=== PATIENT | male | born 1945 | race Caucasian/White ===

== ENCOUNTER 2019-09-24 11:20 | Inpatient (IN) ==
--- NOTE | 2019-09-24 12:40 | Diag Imaging Result Doc PS360 ---
EXAM: CT HEAD W/O CONTRAST 09/24/2019 HISTORY: ams TECHNIQUE: This exam was performed using automated exposure control, adjustment of mA or kV according to patient size, and/or use of iterative reconstruction technique. COMMENT: There is mild generalized cerebral atrophy. There is extensive patchy abnormal lucency in the periventricular white matter of both hemispheres. Compared to 08/29/2019 there has been no significant change in the appearance the brain. The calvarium is intact. The visualized paranasal sinuses are clear. IMPRESSION: Cerebral atrophy and chronic ischemic white matter changes. No evidence of acute disease. If clinically indicated advise further evaluation with MRI. Electronically signed by Delonte Lowery 09/24/2019 12:38 PM
[2019-09-24 12:44] LABS: URINE SOURCE CATH
--- NOTE | 2019-09-24 12:45 | Diag Imaging Result Doc PS360 ---
EXAM: CHEST-1 VIEW 09/24/2019 HISTORY: AMS TECHNIQUE: AP portable at 1204 COMMENT: There is no evidence of acute cardiac or pulmonary disease. Compared to 09/19/2019 there has been no significant change. IMPRESSION: No acute disease. Electronically signed by Delonte Lowery 09/24/2019 12:42 PM
[2019-09-24 12:46] LABS: BASO# 0.02 X1000 (0.0-0.2); BASO% 0.2 % (0.0-0.8); EOS# 0.33 X1000 (0.0-0.7); EOS% 3.2 % (0.0-10.0); HEMATOCRIT 43.2 % (42.0-52.0); HEMOGLOBIN 14.4 g/dL (14.0-18.0); IMM GRAN# 0.04 X1000 (0.0-0.04); IMM GRAN% 0.4 % (0.0-0.5); LYMPH# 1.38 X1000 (1.2-3.4); LYMPH% 13.3 % (20.5-51.1); MCH 32.3 PG (27-31); MCHC 33.3 g/dL (33-37); MCV 96.9 FL (81-99); MONO# 1.49 X1000 (0.11-0.59); MONO% 14.3 % (1.7-9.3); MPV 11.8 FL (7.4-10.4); NEUT# 7.15 X1000 (1.4-6.5); NEUT% 68.6 % (42.2-75.2); PLT 161 X1000 (130-400); RBC 4.46 XMIL (4.7-6.1); RDW 12.9 % (11.5-14.5); WBC 10.41 X1000 (4.8-10.8)
[2019-09-24 12:47] LABS: UR EPITHELIAL CELLS <10 /HPF (<10); URINE BACTERIA NEGATIVE /HPF; URINE RBC TNTC /HPF (<10)
[2019-09-24 12:49] LABS: BILIRUBIN URINE NEGATIVE (NEGATIVE); BLOOD URINE LARGE (NEGATIVE); COLOR ORANGE; GLUCOSE URINE NEGATIVE (NEGATIVE); KETONE URINE 10 mg/dL (NEGATIVE); LEUKOCYTES URINE TRACE (NEGATIVE); NITRITE URINE NEGATIVE (NEGATIVE); PROTEIN URINE 50 mg/dL (NEGATIVE); TURBIDITY URINE HAZY (CLEAR); UROBILINOGEN URINE 2 mg/dL (NORMAL)
--- NOTE | 2019-09-24 13:05 | EKG Report ---
Test Performed on : 09/24/2019 12:55:12 PM Test Reason : bradycardia Blood Pressure : / mmHG Vent. Rate : 075 BPM Atrial Rate : 075 BPM P-R Int : 132 ms QRS Dur : 064 ms QT Int : 354 ms P-R-T Axes : 064 035 114 degrees QTc Int : 395 ms Sinus rhythm. with frequent ventricular-paced complexes and premature supraventricular complexes. Low voltage QRS Nonspecific ST and T wave abnormality Abnormal ECG No previous ECGs available Unconfirmed Result
[2019-09-24 13:07] LABS: ALBUMIN 3.5 g/dL (3.5-5.0); CALCIUM 9.2 mg/dL (8.8-10.2); CREATININE 1.3 mg/dL (0.7-1.2); POTASSIUM 4.6 mmol/L (3.5-5.1); TOTAL BILIRUBIN 0.53 mg/dL (0.20-1.00)
[2019-09-24 13:27] LABS: VALPROIC ACID 80.1 ug/mL (50-100)
[2019-09-24 15:42] LABS: ALLEN TEST NO; BE 3.3 mmoll (-3.0-3.0); BLOOD TYPE ARTERIAL; HCO3-(ACT) 27.3 mmoll (20.0-26.0); METHB 1.1 % (0.0-1.5); MODALITY ROOM AIR; O2(CT) 18.7 mL/dL (15.0-23.0); PCO2(98.6) 37 mmHg (35-45); PO2(98.6) 61 mmHg (60-100); SAMPLE BLOOD; SAO2 94.9 % (95.0-100.0); THB 14.5 g/dL (11.5-17.4); pH(98.6) 7.47 (7.35-7.45)
--- NOTE | 2019-09-24 16:22 | PROVIDER DOCUMENTATION ---
This chart was entered by Shannon Stauffer Scribe, acting as scribe for Samy Hidalgo MD. HPI-General Adult - General Stated Complaint: AMS BLOOD IN URINE Time Seen by Provider: 09/24/19 11:46 Source: EMS, other (caregiver [facility]) Unable to obtain history due to:: altered Allergies/Adverse Reactions: Patient Allergies Allergy/AdvReac Type Severity Reaction Status Date / Time acetaminophen Allergy RASH Verified 09/24/19 11:56 [From Darvocet-N] Penicillins Allergy RASH Verified 09/24/19 11:56 propoxyphene Allergy RASH Verified 09/24/19 11:56 [From Darvocet-N] Home Medications: Home Medication List Medication Instructions Recorded Confirmed Last Taken Type Amlodipine [Norvasc] 10 mg PO DAILY 04/27/18 09/24/19 04/27/18 History Aspirin 81 mg PO DAILY 04/27/18 09/24/19 04/27/18 History Clopidogrel Bisulfate [Clopidogrel] 75 mg PO DAILY 04/27/18 09/24/19 04/27/18 History Trazodone [Desyrel] 50 mg PO DAILY 04/27/18 09/24/19 04/26/18 20:00 History Albuterol Sulfate [Albuterol 2 puff PO Q6H PRN PRN 08/28/19 09/24/19 Unknown History Sulfate Hfa] ATORVAstatin [Lipitor] 1 tab PO DAILY 08/29/19 09/24/19 Unknown History Pantoprazole [Protonix] 1 tab PO DAILY 08/29/19 09/24/19 Unknown History Tamsulosin [Flomax] 0.4 mg PO DAILY #5 cap 09/19/19 09/24/19 Unknown Rx Cyanocobalamin (Vitamin B-12) 1,000 mcg PO DAILY 09/24/19 09/24/19 Unknown History [Vitamin B-12] Dextrose 5 %-0.45 % Sod Chlord 1,000 ml IV BID 09/24/19 09/24/19 Unknown History [Dextrose 5%-0.45% NaCl IV Soln] Divalproex Sodium 500 mg PO BID 09/24/19 09/24/19 Unknown History Docusate Sodium [Dulcolax Stool 100 mg PO DAILY 09/24/19 09/24/19 Unknown History Softener] Fluoxetine HCl 10 mg PO DAILY 09/24/19 09/24/19 Unknown History Folic Acid 1 mg PO DAILY 09/24/19 09/24/19 Unknown History Gentamicin 80 mg IM Q8HR 09/24/19 09/24/19 Unknown History Ibuprofen 400 mg PO Q6HR 09/24/19 09/24/19 Unknown History Mag Hydrox/Al Hydrox/Simeth 30 ml PO 4XDAY PRN PRN 09/24/19 09/24/19 Unknown History [Maalox Plus] Magnesium Hydroxide [Milk of 30 ml PO DAILY 09/24/19 09/24/19 Unknown History Magnesia] Olanzapine Rapdis [Zyprexa Zydis] 7.5 mg PO QAM 09/24/19 09/24/19 Unknown History Opium/Belladonna Alkaloids 1 ea RC Q6HR 09/24/19 09/24/19 Unknown History [Belladonna-Opium 16.2-30 Supp] Sennosides/Docusate Sodium 1 ea PO DAILY 09/24/19 09/24/19 Unknown History [Senokot-S Tablet] - History of Present Illness -Gen Adult Nature of Presenting Problems: 74 yowm presents to the ed via ems for complaint of hematuria seen in cath and p eriods of apnea. pt has been seen for same complaint on 09/19/19 09/21/19 and today. pt has hx of dementia and bladder cancer. caregiver from [facility] sts pt has declined since last visit. pt on exam is altered and does not follow commands. Location of Pain/Injury: reports: none Pain Radiation: reports: no radiation Quality of Pain: reports: none Severity: reports: mild (hematuria) Onset/Duration: reports: other (09/19/19) Timing: reports: still present Context/Activities at Onset: reports: light activity Modifying Factors: improves with: nothing Associated Symptoms: reports: genitourinary problems (hematuria). denies: diarrhea, fever/chills, shortness of breath, vomiting Similar Symptoms Previously?: Yes Recently seen or treated by another doctor?: Yes (been to ed multiple times for hematuria) Review of Systems - Adult - REVIEW OF SYSTEMS - ADULT ROS:: pt is altered so home health care respiratory therapist from [facility] speaks for him Constitutional: denies: chills, fever Eyes: reports: no symptoms reported Ears, Nose, Mouth & Throat: reports: no symptoms reported Cardiovascular: reports: no symptoms reported Respiratory: reports: see HPI, other (brief periods of apnea). denies: wheezing Gastrointestinal: denies: diarrhea, vomiting Genitourinary: reports: see HPI, hematuria Musculoskeletal: reports: no symptoms reported Integumentary: reports: no symptoms reported Neurological: reports: no symptoms reported Psychiatric: reports: no symptoms reported Endocrine: reports: no symptoms reported Hematologic/Lymphatic: reports: no symptoms reported Allergic/Immunologic: reports: no symptoms reported All Other Systems: Reviewed and Negative Past History - Adult - PAST MEDICAL HISTORY-ADULT Review of Records: reports: Old Records Reviewed, Nursing Assessment Review, Medications Reviewed, Social history reviewed & non-contributory. Major Childhood Illnesses: reports: denies history Cardiovascular: reports: HTN, [place] Respiratory: reports: denies history Gastrointestinal: reports: GERD Genitourinary: reports: cancer (bladder), prostate cancer Musculoskeletal: reports: denies history Neurological: reports: denies history Psychiatric: reports: denies history Endocrine/Immune: reports: denies history Other Conditions: reports: denies history - PRIOR SURGERIES/PROCEDURES Surgical/Procedure History: reports: appendectomy, other (bladder sx; prostate cancer) - IMMUNIZATION STATUS Childhood Immunizations: See Nurse Assessment Flu Vaccine: See Nurse Assessment - FAMILY HISTORY Family History: reviewed, not pertinent - SOCIAL HISTORY Smoking: cigarettes, less than 1 pack/day Provider spent 3-5 mins advising pt. on dangers of tobacco.: pt is altered at time of exam Substance Use: none/never Living Situation: care facility ([facility]) Physical Exam-General - PHYSICAL EXAM-ADULT Exam Limited by: pt has mumbling speech and does not follow commands/hx dementia Initial Vital Signs Reviewed: Yes - CONSTITUTIONAL General Appearance: no apparent distress, slow to respond - EYES Eyes: PERRL/EOMI - HEAD, EARS, NOSE, MOUTH & THROAT HENMT: negative: moist mucous membranes (dry mild) - NECK Neck: full range of motion, normal inspection - RESPIRATORY Respiratory: chest non-tender, lungs clear, normal breath sounds, other (no apnea witnessed since pt has been in ed) - CARDIOVASCULAR Cardiovascular: normal peripheral pulses, regular rate, rhythm - GASTROINTESTINAL (ABDOMEN) Abdominal Exam: non tender, soft - GENITOURINARY Male Genitalia: deferred, other (hematuria seen in cath) Rectal Exam: deferred Hemoccult Exam: deferred - MUSCULOSKELETAL Back Exam: other (pt lying supine no exam done) Extremity: normal capillary refill - SKIN Integumentary: warm/dry - PSYCHIATRIC Psych/Mental Status: disoriented x 3, other (mumbling speech unable to follow commnads) Progress - PLAN OF CARE/RESULTS Progress/Plan/Lab Results: hematuria is most likely due to his catheter auto-manipulation Result Diagrams: 09/24/19 12:28 09/24/19 12:28 - EKG 1 Time of EKG reading by physician:: 12:55 EKG Read and Signed by:: Samy Hidalgo EKG Interpretation (*Must complete 3 of following elements*): Abnormal Rate: 75 Rhythm: sinus rhythm w/freq ventricular paced complexes & premature supraventricula [place]: normal QRS: other (low volatge qrs) [place] Interval: normal Comments: nonspecific ST and T wave abnormality - XRAY 1 XRAY: Bilateral XRAY Study: Chest Impression: See EMR Report (EXAM: CHEST-1 VIEW 09/24/2019 HISTORY: AMS TECHNIQUE: AP portable at 1204 COMMENT: There is no evidence of acute cardiac or pulmonary disease. Compared to 09/19/2019 there has been no significant change. IMPRESSION: No acute disease. Electronically signed by Delonte Lowery 09/24/2019 12:42 PM 09/24/19 1242 Interpreting Physician: Delonte Lowery MD Dictated Date/Time: 09/24/19 1242 cc: Samy Hidalgo MD;) - CT/MRI 1 CT Study: Head Impression: See EMR Report (EXAM: CT HEAD W/O CONTRAST 09/24/2019 HISTORY: ams TECHNIQUE: This exam was performed using automated exposure control, adjustment of mA or kV according to patient size, and/or use of iterative reconstruction technique. COMMENT: There is mild generalized cerebral atrophy. There is extensive patchy abnormal lucency in the periventricular white matter of both hemispheres. Compared to 08/29/2019 there has been no significant change in the appearance the brain. The calvarium is intact. The visualized paranasal sinuses are clear. IMPRESSION: Cerebral atrophy and chronic ischemic white matter changes. No evidence of acute disease. If clinically indicated advise further evaluation with MRI. Electronically signed by Delonte Lowery 09/24/2019 12:38 PM 09/24/19 1238 Interpreting Physician: Delonte Lowery MD Dictated Date/Time: 09/24/19 1237 cc: Samy Hidalgo MD;) - CONSULTS/PCP/HOSPITALIST Notification #1 *Consult/PCP/Hospitalist*: dr montalvo Time Discussed: 14:55 Reason/Comments: phone consult Consult Disposition: other (remove quigley, check ABGs) #2 Consult: dr conroy Time Discussed: 15:47 (pt can not return to [facility]) Reason/Comments: phone conersation #3 Consult: dr montalvo Time Discussed: 16:12 Reason/Comments: phone consult Consult Disposition: Will see in ED, Admit Departure - Departure Date of Disposition Decision: 09/24/19 Time of Disposition Decision: 12:00 DIAGNOSIS: UTI (urinary tract infection) Altered mental status Qualifiers: Altered mental status type: stupor Qualified Code(s): R40.1 - Stupor Hematuria Qualifiers: Hematuria type: gross Qualified Code(s): R31.0 - Gross hematuria Disposition: ADMITTED INPATIENT 09 Certified Medical Emergency: Emergent Condition: Fair Referrals and Follow-Ups: Heath Montalvo MD [Primary Care Provider] - Discharge Education: Steps to Quit Smoking, [id number] - Critical Care Note This patient required my direct & personal management of CC.: No Attestation - Physician/ DESMOND Attestation Patient care was provided by Advanced Practice Provider:: No The physician spent face to face time with patient:: Yes Advanced Practice Provider documentation review:: Supervising physician onsite and consulted in the evaluation and care of this patient. The physician did have a face to face encounter with the patient. This chart was documented by the indicated scribe, (Shannon Stauffer Scribe) and accurately reflects the services I performed and decisions made by me, Samy Hidalgo MD, as attested by the provider's signature.
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
[2019-09-24] MEDS: FOLIC ACID PO SCH (22:04)
[2019-09-24] MEDS: HEPARIN SUBQ SCH (22:04)
[2019-09-24] MEDS: DESYREL PO SCH (22:04)
[2019-09-24] MEDS: KEFLEX PO SCH (22:04)
[2019-09-24] MEDS: FLOMAX PO SCH (22:04)
[2019-09-24] MEDS: DEPAKOTE PO SCH (22:05)
[2019-09-25] MEDS: PLAVIX PO SCH ×2 (10:24→10:45)
[2019-09-25] MEDS: KEFLEX PO SCH ×3 (10:24→20:43)
[2019-09-25] MEDS: DEPAKOTE PO SCH ×3 (10:24→20:43)
[2019-09-25] MEDS: LIPITOR PO SCH ×2 (10:24→10:45)
[2019-09-25] MEDS: ASPIRIN PO SCH ×2 (10:24→10:44)
[2019-09-25] MEDS: NORVASC PO SCH ×2 (10:24→10:45)
[2019-09-25] MEDS: PERICOLACE PO SCH ×2 (10:24→10:45)
[2019-09-25] MEDS: HEPARIN SUBQ SCH ×3 (10:25→20:42)
[2019-09-25] MEDS: MILK OF MAGNESIA PO SCH ×2 (10:25→10:45)
[2019-09-25] MEDS: PRILOSEC PO SCH ×2 (10:25→10:43)
[2019-09-25] MEDS: PROZAC PO SCH ×2 (10:25→10:43)
--- NOTE | 2019-09-25 11:53 | PROGRESS NOTE ---
DATE: 09/25/2019 SUBJECTIVE: The patient's chart was reviewed. In summary, the patient was admitted yesterday, having been sent by [facility] to the emergency department secondary to urinary tract infection and alteration of mental status. Apparently, the patient was seen in the emergency department at [facility] on 09/21/2019. Urine culture revealed Proteus. The patient has been treated with antibiotic intervention. Since admission, the patient's home medications were continued. Antibiotics were transitioned to Keflex. Bear catheter was removed. This morning, prior to my arrival, I could hear the patient yelling at the nurse in his room. He was refusing to take his medications. Upon my entering the room, the patient was generally pleasant. With encouragement, the patient did ultimately take his medications. The patient was directed and responded appropriately. He denies any significant complaints currently, including fevers, chills, nausea, vomiting, shortness of breath, or chest discomfort. OBJECTIVE: Vital Signs: T-max 98.2 degrees, heart rate 70 to 85, respirations 16 to 19, blood pressure 117 to 151/58 to 84. General: Confused. No acute distress. Cardiovascular: Regular rate and rhythm. No significant murmurs, rubs, or gallops. Pulmonary: Clear to auscultation anteriorly. Abdomen: Soft, nontender, nondistended. Positive bowel sounds. Extremities: Moves all extremities well. No significant clubbing, cyanosis, or edema. Dermatologic: No evidence of rash. LABORATORY DATA: None. ASSESSMENT AND PLAN: 1. Alteration of mental status. This is above his baseline dementia. This likely is secondary to his underlying infection. We will treat this as described below. 2. Cystitis. Urine culture grew Proteus. The patient has been transitioned to Keflex therapy. As above, after coaching, he took his medications appropriately this morning. We will continue his current regimen. Depending on his progress, we will remain aware that Proteus could manifest with associated stone disease. Should his condition continue, CT scan of the abdomen and pelvis may be appropriate. 3. Advanced dementia with inappropriate and dangerous acts. The patient is currently being treated with Zyprexa, Depakote, and Prozac therapy. We will continue each of these as this has been adjusted per [facility]. I suspect with treatment of his underlying infection, this will stabilize. 4. Hypertension. We will continue the patient on amlodipine therapy. 5. Urinary retention. The patient is currently being treated with Flomax therapy. We will continue this. His Bear catheter has been removed. He will be followed with every 12-hour bladder scans. 6. Hyperlipidemia. We will continue atorvastatin therapy. 7. Disposition. At this point, the patient continues to require fpc care in a hospital setting. We will plan discharge home once appropriate. cc: MD Heath Rodriguze MD
[2019-09-25] MEDS: FLOMAX PO SCH (17:08)
[2019-09-25] MEDS: DESYREL PO SCH (20:43)
[2019-09-25] MEDS: FOLIC ACID PO SCH (20:43)
[2019-09-25] MEDS: ZYPREXA ZYDIS PO SCH (20:44)
[2019-09-26] MEDS: PRILOSEC PO SCH (06:56)
[2019-09-26] MEDS: NORVASC PO SCH (09:24)
[2019-09-26] MEDS: KEFLEX PO SCH ×2 (09:24→21:47)
[2019-09-26] MEDS: MILK OF MAGNESIA PO SCH (09:24)
[2019-09-26] MEDS: ASPIRIN PO SCH (09:24)
[2019-09-26] MEDS: PROZAC PO SCH (09:24)
[2019-09-26] MEDS: HEPARIN SUBQ SCH ×2 (09:24→22:01)
[2019-09-26] MEDS: PLAVIX PO SCH (09:24)
[2019-09-26] MEDS: PERICOLACE PO SCH (09:24)
[2019-09-26] MEDS: LIPITOR PO SCH (09:24)
[2019-09-26] MEDS: DEPAKOTE PO SCH ×2 (09:25→21:47)
[2019-09-26] MEDS: FLOMAX PO SCH (18:02)
[2019-09-26] MEDS: FOLIC ACID PO SCH (21:47)
[2019-09-26] MEDS: DESYREL PO SCH (21:47)
[2019-09-26] MEDS: ZYPREXA ZYDIS PO SCH (22:00)
[2019-09-27] MEDS: PRILOSEC PO SCH (06:35)
[2019-09-27] MEDS: DEPAKOTE PO SCH ×2 (08:19→21:26)
[2019-09-27] MEDS: HEPARIN SUBQ SCH ×2 (08:19→21:26)
[2019-09-27] MEDS: MILK OF MAGNESIA PO SCH (08:19)
[2019-09-27] MEDS: NORVASC PO SCH (08:19)
[2019-09-27] MEDS: LIPITOR PO SCH (08:19)
[2019-09-27] MEDS: PERICOLACE PO SCH (08:20)
[2019-09-27] MEDS: PLAVIX PO SCH (08:20)
[2019-09-27] MEDS: ASPIRIN PO SCH (08:20)
[2019-09-27] MEDS: PROZAC PO SCH (08:20)
[2019-09-27] MEDS: DESYREL PO SCH (21:27)
[2019-09-27] MEDS: FLOMAX PO SCH (21:27)
[2019-09-27] MEDS: FOLIC ACID PO SCH ×2 (21:27→22:35)
[2019-09-27] MEDS: ZYPREXA ZYDIS PO SCH (21:27)
[2019-09-28] MEDS: PRILOSEC PO SCH (06:26)
[2019-09-28] MEDS ORDERED: MOTRIN PO PRN (10:32)
[2019-09-28] MEDS ORDERED: DULCOLAX PR ONE (10:34)
[2019-09-28] MEDS: MILK OF MAGNESIA PO SCH (10:57)
[2019-09-28] MEDS: HEPARIN SUBQ SCH ×2 (10:57→21:47)
[2019-09-28] MEDS: LIPITOR PO SCH (10:58)
[2019-09-28] MEDS: NORVASC PO SCH (10:58)
[2019-09-28] MEDS: ASPIRIN PO SCH (10:58)
[2019-09-28] MEDS: PERICOLACE PO SCH (10:58)
[2019-09-28] MEDS: PROZAC PO SCH (10:58)
[2019-09-28] MEDS: DEPAKOTE PO SCH ×2 (10:58→21:48)
[2019-09-28] MEDS: FLOMAX PO SCH (18:34)
[2019-09-28] MEDS: ZYPREXA ZYDIS PO SCH (21:48)
[2019-09-28] MEDS: FOLIC ACID PO SCH (21:48)
[2019-09-28] MEDS: DESYREL PO SCH (21:48)
[2019-09-29] MEDS: PRILOSEC PO SCH (06:05)
[2019-09-29] MEDS: ASPIRIN PO SCH (09:54)
[2019-09-29] MEDS: DEPAKOTE PO SCH ×2 (09:54→20:35)
[2019-09-29] MEDS: NORVASC PO SCH (09:54)
[2019-09-29] MEDS: MILK OF MAGNESIA PO SCH (09:54)
[2019-09-29] MEDS: PROZAC PO SCH (09:54)
[2019-09-29] MEDS: HEPARIN SUBQ SCH ×2 (09:54→20:34)
[2019-09-29] MEDS: PERICOLACE PO SCH (09:54)
[2019-09-29] MEDS: LIPITOR PO SCH (09:54)
[2019-09-29] MEDS: FLOMAX PO SCH ×2 (19:01→19:03)
[2019-09-29] MEDS: ZYPREXA ZYDIS PO SCH (20:35)
[2019-09-29] MEDS: DESYREL PO SCH (20:35)
[2019-09-29] MEDS: FOLIC ACID PO SCH (20:35)
[2019-09-30] MEDS: PRILOSEC PO SCH (06:18)
[2019-09-30] MEDS: PROZAC PO SCH (10:13)
[2019-09-30] MEDS: DEPAKOTE PO SCH ×2 (10:13→21:28)
[2019-09-30] MEDS: NORVASC PO SCH (10:17)
[2019-09-30] MEDS: LIPITOR PO SCH (10:18)
[2019-09-30] MEDS: PERICOLACE PO SCH (10:19)
[2019-09-30] MEDS: ASPIRIN PO SCH (10:19)
[2019-09-30] MEDS: MILK OF MAGNESIA PO SCH (10:20)
[2019-09-30] MEDS: HEPARIN SUBQ SCH ×2 (10:20→21:27)
[2019-09-30] MEDS: FLOMAX PO SCH (18:21)
[2019-09-30] MEDS: DESYREL PO SCH (21:28)
[2019-09-30] MEDS: FOLIC ACID PO SCH (21:28)
[2019-09-30] MEDS: ZYPREXA ZYDIS PO SCH (21:28)
[2019-10-01] MEDS ORDERED: STERILE WATER INJ. INJ ONE (04:33)
[2019-10-01] MEDS ORDERED: GEODON IM ONE (04:33)
[2019-10-01] MEDS: PRILOSEC PO SCH (06:24)
[2019-10-01] MEDS: PROZAC PO SCH (11:03)
[2019-10-01] MEDS: NORVASC PO SCH (11:03)
[2019-10-01] MEDS: LIPITOR PO SCH (11:04)
[2019-10-01] MEDS: ASPIRIN PO SCH (11:04)
[2019-10-01] MEDS: HEPARIN SUBQ SCH ×3 (11:04→22:47)
[2019-10-01] MEDS: PERICOLACE PO SCH (11:04)
[2019-10-01] MEDS: DEPAKOTE PO SCH ×2 (11:04→22:47)
[2019-10-01] MEDS: MILK OF MAGNESIA PO SCH (11:05)
[2019-10-01] MEDS: FLOMAX PO SCH (19:33)
[2019-10-01] MEDS: DESYREL PO SCH (22:47)
[2019-10-01] MEDS: FOLIC ACID PO SCH (22:47)
[2019-10-01] MEDS: ZYPREXA ZYDIS PO SCH (22:48)
[2019-10-02] MEDS: PRILOSEC PO SCH (06:08)
[2019-10-02] MEDS: MILK OF MAGNESIA PO SCH (09:39)
[2019-10-02] MEDS: DEPAKOTE PO SCH (09:39)
[2019-10-02] MEDS: PERICOLACE PO SCH (09:39)
[2019-10-02] MEDS: HEPARIN SUBQ SCH (09:39)
[2019-10-02] MEDS: LIPITOR PO SCH (09:39)
[2019-10-02] MEDS: ASPIRIN PO SCH (09:39)
[2019-10-02] MEDS: NORVASC PO SCH (09:39)
[2019-10-02] MEDS: PROZAC PO SCH (09:39)
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
[2019-10-02 15:45] VITALS: BP 119/71
== END 2019-10-02 15:54 | DRG 690 ==
LOC: ED 11:20 → EDIPHOLD 17:46 → 3N 09-25 07:12
PROVIDERS: ADMIT Internal Medicine; ATTEND Internal Medicine